=== PATIENT | male | born 2000 | race African-American/Black ===

== ENCOUNTER 2020-03-11 16:40 | Emergency (ER) | payer OTHER ==
[~2020-03-11] VITALS: Ht 172.7 cm; Wt 61.4 kg
[2020-03-11] MEDS ORDERED: LIDOCAINE 1% 10 ML VIAL INJ ONE (18:45)
[2020-03-11] MEDS ORDERED: AMOX TR/POT CLAV 875 MG/125 MG TABLET PO ONE (18:45)
[2020-03-11 20:00] VITALS: BP 139/74
== END 2020-03-11 20:03 | disposition home or self-care (01) ==
LOC: EMS 16:40
DX: S61.412A Laceration without foreign body of left hand, initial encounter (principal); F12.90 Cannabis use, unspecified, uncomplicated; Y04.2XXA Assault by strike against or bumped into by another person, initial encounter; Y93.89 Activity, other specified; Y92.89 Other specified places as the place of occurrence of the external cause; Y99.8 Other external cause status
CPT/HCPCS: 12001; 73130; 99283; J3490